=== PATIENT | male | born 1995 | race Caucasian/White ===

== ENCOUNTER 2019-04-14 09:55 | Emergency (ER) | payer MEDICAID ==
[~2019-04-14] VITALS: Ht 165.1 cm; Wt 84.1 kg
[2019-04-14 10:10] VITALS: BP 152/81
[2019-04-14] MEDS ORDERED: HYDROCODONE/ACETAMINOPHEN 5-325 MG TABLET PO ONE (10:15)
== END 2019-04-14 10:39 | disposition home or self-care (01) ==
LOC: EMS 09:57
DX: K08.89 Other specified disorders of teeth and supporting structures (principal); I10 Essential (primary) hypertension

== ENCOUNTER 2019-10-30 12:33 | Emergency (ER) | payer SELFPAY ==
[~2019-10-30] VITALS: Ht 165.1 cm; Wt 79.5 kg
[2019-10-30] MEDS ORDERED: KETOROLAC TROMETHAMINE 30 MG/ML VIAL IVP ONE (15:45)
[2019-10-30] MEDS ORDERED: SODIUM CHLORIDE 0.9% 1,000 ML IV ONE (15:45)
[2019-10-30] MEDS ORDERED: ONDANSETRON HCL 4 MG/2 ML VIAL IVP ONE (15:45)
[2019-10-30 17:05] VITALS: BP 123/74
== END 2019-10-30 17:32 | disposition home or self-care (01) ==
LOC: EMS 12:38
DX: R11.2 Nausea with vomiting, unspecified (principal); R51 Headache; R05 Cough
CPT/HCPCS: 96361; 96374; 96375; 99283; J1885; J2405; J7030

== ENCOUNTER 2020-12-06 10:02 | Emergency (ER) | payer MEDICAID ==
[~2020-12-06] VITALS: Ht 170.2 cm; Wt 70.5 kg
[2020-12-06] MEDS ORDERED: FAMOTIDINE 10 MG/ML 2 ML VIAL IVP ONE (10:30)
[2020-12-06] MEDS ORDERED: ONDANSETRON HCL 4 MG/2 ML VIAL IVP ONE (10:30)
[2020-12-06] MEDS ORDERED: MAG HYDROX/AL HYDROX/SIMETH 30 ML SUSP UDCUP PO ONE (10:30)
[2020-12-06] MEDS ORDERED: SODIUM CHLORIDE 0.9% 1,000 ML IV ONE (10:30)
[2020-12-06] MEDS ORDERED: KETOROLAC TROMETHAMINE 30 MG/ML VIAL IVP ONE (10:30)
[2020-12-06 11:00] LABS: BASOPHILS % (AUTO) 1.1 % (0.0-2.0); EOSINOPHILS % (AUTO) 3.9 % (1.0-6.0); HEMOGLOBIN 16.4 g/dL (13.5-17.5); LYMPHOCYTES # (AUTO) 2.6 K/uL (1.0-4.8); LYMPHOCYTES % (AUTO) 42.2 % (22.0-44.0); MEAN CORPUSCULAR HEMOGLOBIN 29.5 pg (26.0-34.0); MEAN CORPUSCULAR HGB CONC 34.2 G/dL (31.0-37.0); MEAN CORPUSCULAR VOLUME 86 fL (80-100); MONOCYTES # (AUTO) 0.5 K/uL (0.1-1.0); MONOCYTES % (AUTO) 8.2 % (2.0-9.0); NEUTROPHILS # (AUTO) 2.8 K/uL (1.8-7.7); NEUTROPHILS % (AUTO) 44.6 % (40.0-70.0); PLATELET COUNT (AUTO) 240 K/uL (150-450); RED BLOOD CELL COUNT(AUTO) 5.56 MIL/uL (4.50-5.90)
[2020-12-06 11:09] LABS: ANION GAP 8 mmol/L (8-16); CARBON DIOXIDE 29 mmol/L (22-29); CHLORIDE 104 mmol/L (98-107); CREATININE 0.77 mg/dL (0.60-1.30); GLOMERULAR FILTR. RATE CALC > 60 mL/min (>60); GLUCOSE,RANDOM 83 mg/dL (70-110); POTASSIUM 3.8 mmol/L (3.5-5.1); SODIUM SERUM 141 mmol/L (136-145); UREA NITROGEN, BLOOD 9 mg/dL (7-18)
[2020-12-06 11:15] LABS: ALANINE AMINOTRANSFERASE 39 U/L (12-78); ALBUMIN 4.3 g/dL (3.4-5.0); ALKALINE PHOSPHATASE 75 U/L (46-116); ASPARTATE AMINOTRANSFERASE 20 U/L (15-37); BILIRUBIN,TOTAL 0.6 mg/dL (0.1-1.0); PHOSPHORUS 3.6 mg/dL (2.5-4.9); TOTAL PROTEIN, SERUM 7.5 g/dL (6.4-8.2)
[2020-12-06 11:57] LABS: COVID AG,FIA SOURCE NASOPHARYNGEAL
[2020-12-06] MEDS ORDERED: AZITHROMYCIN 500 MG TABLET PO ONE (12:00)
[2020-12-06 12:24] VITALS: BP 110/70
[2020-12-06 12:46] LABS: INFLUENZA TYPE A NEGATIVE FOR TYPE A (NEGATIVE); INFLUENZA TYPE B NEGATIVE FOR TYPE B (NEGATIVE)
== END 2020-12-06 12:51 | disposition home or self-care (01) ==
LOC: EMS 10:43
DX: E86.0 Dehydration (principal); M79.10 Myalgia, unspecified site; Z20.822 Contact with and (suspected) exposure to COVID-19
CPT/HCPCS: 36415; 80053; 83735; 84100; 85025; 87426; 87804; 96361; 96374; 96375; 99284; A9575; J1885; J2405; J3490; U0003

== ENCOUNTER 2021-05-02 23:19 | Emergency (ER) | payer MEDICAID, OTHER ==
[~2021-05-02] VITALS: Ht 162.6 cm; Wt 86.4 kg
[2021-05-03] MEDS ORDERED: HYDROCODONE/ACETAMINOPHEN 5-325 MG TABLET PO ONE (03:45)
[2021-05-03] MEDS ORDERED: PENICILLIN V POTASSIUM 500 MG TABLET PO ONE (03:45)
[2021-05-03 04:13] VITALS: BP 120/88
== END 2021-05-03 04:16 | disposition home or self-care (01) ==
LOC: EMS 23:32
DX: K04.7 Periapical abscess without sinus (principal); K04.01 Reversible pulpitis
CPT/HCPCS: 99283

== ENCOUNTER 2021-07-30 14:35 | Emergency (ER) | payer OTHER ==
[~2021-07-30] VITALS: Ht 165.1 cm; Wt 100.4 kg
[2021-07-30 14:47] VITALS: BP 139/79
[2021-07-30] MEDS ORDERED: KETOROLAC TROMETHAMINE 60 MG/2 ML VIAL IM ONE (15:15)
== END 2021-07-30 15:24 | disposition home or self-care (01) ==
LOC: EMS 14:41
DX: K08.89 Other specified disorders of teeth and supporting structures (principal)
CPT/HCPCS: 96372; 99283; J1885

== ENCOUNTER 2024-02-02 23:10 | Emergency (ER) | payer OTHER ==
[~2024-02-02] VITALS: Ht 165.1 cm; Wt 115.0 kg
[2024-02-03] MEDS ORDERED: CEPH-558 PO (00:20)
[2024-02-03] MEDS ORDERED: IBUP-1554 PO (00:20)
[2024-02-03] MEDS ORDERED: HYDR-4062 PO (00:20)
[2024-02-03] MEDS: HYDROCODONE/ACETAMINOPHEN 5-325 MG TABLET PO ONE (00:48)
[2024-02-03] MEDS: CEPHALEXIN MONOHYDRATE 500 MG CAPSULE PO ONE (00:48)
[2024-02-03] MEDS: IBUPROFEN 600 MG TABLET PO ONE (00:48)
[2024-02-03 01:15] VITALS: BP 132/74; PULSE 71; RESP 14; TEMP 98.5
== END 2024-02-03 00:15 | disposition home or self-care (01) ==
LOC: EMS 23:12
DX: H60.01 Abscess of right external ear (principal)
CPT/HCPCS: 99284; Z7502; Z7610

== ENCOUNTER 2024-04-13 20:58 | Emergency (ER) | payer OTHER ==
[~2024-04-13] VITALS: Ht 165.1 cm; Wt 104.5 kg
[~2024-04-13 20:58] MED LIST: CEPH-558 PO; HYDR-4062 PO; IBUP-1554 PO
[2024-04-13 21:14] LABS: COVID AG,FIA SOURCE NASAL SWAB
[2024-04-13] MEDS: SODIUM CHLORIDE 0.9% 3,150 ML IV ONE (21:53)
[2024-04-13 21:56] LABS: INFLUENZA TYPE A NEGATIVE FOR TYPE A (NEGATIVE); INFLUENZA TYPE B NEGATIVE FOR TYPE B (NEGATIVE)
[2024-04-13 21:57] LABS: BASOPHILS % (AUTO) 0.2 % (0.0-2.0); EOSINOPHILS % (AUTO) 0.6 % (1.0-6.0); HEMATOCRIT 47.3 % (41-53); HEMOGLOBIN 16.1 g/dL (13.5-17.5); LYMPHOCYTES # (AUTO) 0.6 K/uL (1.0-4.8); MEAN CORPUSCULAR HGB CONC 33.9 G/dL (31.0-37.0); MEAN CORPUSCULAR VOLUME 86 fL (80-100); MONOCYTES # (AUTO) 0.8 K/uL (0.1-1.0); NEUTROPHILS # (AUTO) 8.7 K/uL (1.8-7.7); NEUTROPHILS % (AUTO) 85.2 % (40.0-70.0); PLATELET COUNT (AUTO) 258 K/uL (150-450); RED BLOOD CELL COUNT(AUTO) 5.53 MIL/uL (4.50-5.90); RED CELL DISTRIBUTION WIDTH 14.2 % (11.5-14.5); WHITE BLOOD COUNT (AUTO) 10.2 K/uL (4.5-11.0)
[2024-04-13] MEDS ORDERED: 0.9% SODIUM CHLORIDE 10 ML SYRINGE IVP PRN (22:00)
[2024-04-13 22:04] LABS: SARS-COV2 (COVID) ANTIGEN,FIA Positive (Negative)
[2024-04-13 22:06] LABS: PLATELET MORPHOLOGY COMMENT LARGE PLTS PRESENT; RBC MORPHOLOGY COMMENT NORMAL RBC MORPH
[2024-04-13] MEDS: FAMOTIDINE 20 MG/2 ML VIAL IVP ONE (22:20)
[2024-04-13] MEDS: MAG HYDROX/ALUMINUM HYD/SIMETH 30 ML SUSPENSION UDCUP PO ONE (22:20)
[2024-04-13] MEDS: ONDANSETRON HCL 4 MG/2 ML VIAL IVP ONE (22:20)
[2024-04-13] MEDS: ACETAMINOPHEN 1000 MG/ISO-OSM 100 ML IV ONE (22:20)
[2024-04-13 22:42] LABS: LACTIC ACID 1.1 mmol/L (0.4-2.0)
[2024-04-13 23:08] VITALS: TEMP 98.9
[2024-04-13 23:45] VITALS: BP 136/86; PULSE 105; RESP 20
[2024-04-13 23:49] LABS: ANION GAP 8 mmol/L (8-16); CALCIUM, TOTAL 8.6 mg/dL (8.8-10.5); CARBON DIOXIDE 26 mmol/L (22-29); CHLORIDE 102 mmol/L (98-107); CREATININE 0.77 mg/dL (0.60-1.30); GLOMERULAR FILTR. RATE CALC > 60 mL/min (>60); GLUCOSE,RANDOM 103 mg/dL (70-110); POTASSIUM 3.6 mmol/L (3.5-5.1); SODIUM SERUM 136 mmol/L (136-145); UREA NITROGEN, BLOOD 12 mg/dL (7-18)
[2024-04-13 23:55] LABS: ALANINE AMINOTRANSFERASE 51 U/L (12-78); ALBUMIN 3.7 g/dL (3.4-5.0); ALKALINE PHOSPHATASE 143 U/L (46-116); ASPARTATE AMINOTRANSFERASE 34 U/L (15-37); BILIRUBIN,TOTAL 0.8 mg/dL (0.1-1.0); LIPASE 15 U/L (16-77); TOTAL PROTEIN, SERUM 7.5 g/dL (6.4-8.2)
[2024-04-14] MEDS ORDERED: ACET-3385 PO (00:04)
[2024-04-14] MEDS ORDERED: IBUP-1492 PO (00:04)
[2024-04-14] MEDS ORDERED: ONDA-104 PO (00:04)
== END 2024-04-14 00:41 | disposition home or self-care (01) ==
LOC: EMS 20:58
DX: U07.1 COVID-19 (principal); R11.2 Nausea with vomiting, unspecified
CPT/HCPCS: 99285; 96365; 96375; 71045; 87426; 80053; 83605; 83690; 85025; 87040; 87804; 36415; 93005; 84145; J3490; J2405; J0131